=== PATIENT | female | born 1985 | race Caucasian/White ===

== ENCOUNTER 2017-07-05 19:07 | Emergency (ER) | payer OTHER ==
[~2017-07-05] VITALS: Ht 157.5 cm; Wt 73.0 kg
[2017-07-05 19:12] VITALS: TEMP 37.5; Ht 157.5 cm; Wt 73.0 kg
[2017-07-05] MEDS ORDERED: HYDROCODONE/ACETAMOPHEN 5/325MG TAB PO STA (19:56)
[2017-07-05] MEDS ORDERED: IBUPROFEN 600 MG TAB PO STA (19:56)
--- NOTE | 2017-07-05 20:37 | DIAGNOSTIC IMAGING REPORT ---
R ANKLE MIN 3 VIEWS ROUTINE CLINICAL HISTORY: Right ankle pain status post trauma COMPARISON: None. DISCUSSION: There is lateral soft tissue swelling. No acute fractures or subluxations are visualized. IMPRESSION: Lateral soft tissue swelling. No fractures identified. Electronically signed by: Jacob Martins M.D. 07/05/2017 8:36 PM Dictated Date/Time: 07/05/2017 8:35 PM
[2017-07-05 20:58] VITALS: BP 164/85; PULSE 76; O2SAT 95
--- NOTE | 2017-07-06 14:52 | EMERGENCY ROOM VISIT NOTE ---
ED Visit Note First contact with patient: 20:41 Chief Complaint: I hurt my right ankle. History of Present Illness: Ms. Ga is a 31-year-old white female who ambulates into the ED accompanied by 2 retirement personnel complaining of right lateral ankle pain. Patient reports approximately one hour before she arrived in the emergency department she was working down a set of stairs. She reports that she missed a last 2 stairs and rolled her right ankle. From her description of the injury it was an inversion injury. She reports since that event she has been having moderate right lateral ankle pain and swelling. Currently she describes her pain as a combination of sharp and throbbing. She rates her discomfort 6/10. The pain is nonradiating. The pain worsens with palpation, inversion and ambulation. She has not identified any alleviating factors related to the pain. She reports she has not had a medications for pain prior to arrival at the hospital. Associated with her pain she reports she has a tingling sensation in her little toe. She denies any hip pain, knee pain, previous significant ankle injuries or surgeries. Review of Systems: As noted above in history of present illness. At least body systems were reviewed and found to be negative as noted above. Past Medical History: Patient denies. Current Medications: Patient denies. Allergies to Medications: Denies. Social History: Patient is currently incarcerated; she denies tobacco use. Physical Examination: Vital Signs: Date Time Temp Pulse Resp B/P (MAP) Pulse Ox O2 Delivery O2 Flow Rate FiO2 07/05/17 20:58 76 18 164/85 95 07/05/17 20:09 77 18 145/87 96 Room Air 07/05/17 19:12 37.5 76 18 133/90 98 Room Air GENERAL: 31-year-old female in mild to moderate distress due to pain, nontoxic- appearing, afebrile and hemodynamically stable. NEUROLOGICAL: Awake, alert and oriented to person, place and time. Answering questions appropriately and following commands. SKIN: Warm, dry and pink. No soft tissue trauma noted. RIGHT LOWER EXTREMITY: No gross bony deformity. No shortening or malrotation. No tenderness in the hip, thigh, knee or proximal leg. Mild tenderness over the lower quarter of the fibula without bony deformity. There is also moderate tenderness over the lateral malleolus with moderate swelling but no bony deformity or crepitus. There is tenderness in the anterior inferior ligamentous structures around the lateral malleolus with moderate swelling. No tenderness throughout the foot or leg calf. Decreased range of motion due to pain primarily with inversion and plantarflexion. I did stress her ligaments which caused increased pain but no laxity with inversion and distraction. Throughout the foot the skin was warm and pink and capillary refill is brisk. Patient was able to distinguish light sensations through all dermatomes of the foot except for the little toe. ED Course: Patient is assessed as noted above. Patient's medication list was reviewed. Patient was given ice, 600 mg of ibuprofen and 1 [place] 5/325 mg tablet by mouth for pain. Right Ankle X-Rays: Were read by myself and the radiologist shows no acute fractures or dislocations. Patient was placed in a gel splint and on nonweightbearing crutches. Patient was educated about today's findings and instructed on her treatment plan ; she verbalized understanding and agreement with this plan. Clinical Impression: Right lateral ankle sprain. Decision-Making: Initially my differential diagnosis I considered lower leg fracture, ankle fracture, ankle sprain, Achilles tendon injury, contusion and other causes. Disposition: Patient discharged back to retirement accompanied by the retirement guards ; prior to departure she was reassessed and subjectively reported her pain was worse and rated her discomfort 7/10. Plan: Comfort measures including rest, ice, elevation, splint and crutch use were discussed with the patient. I did make recommendations to the retirement at the patient have access to alternating ibuprofen and acetaminophen every 3 hours. I also recommended that the patient have follow-up with application specialist if no better in 7-10 days or be brought back to the emergency department for worsening symptoms or any new/concerning symptoms.
== END 2017-07-05 20:58 | disposition home or self-care (01) ==
LOC: C.EDB 19:10 → C.EDD 20:58
DX: S93.401A Sprain of unspecified ligament of right ankle, initial encounter (principal); W10.9XXA Fall (on) (from) unspecified stairs and steps, initial encounter